=== PATIENT | female | born 1990 ===

== ENCOUNTER → 2017-12-05 | Day surgery (SDC) | payer OTHER ==
[~2017-12-05] VITALS: Ht 175.3 cm; Wt 107.5 kg
--- NOTE | 2017-12-05 14:50 | Operative Report ---
Operative/Inv Procedure Report Surgery Date: 12/05/17 Name of Procedure: Diagnostic Hysteroscopy, Dilation and Curettage Pre-Operative Diagnosis: retained endometrial tissue, infertility Post-Operative Diagnosis: same Estimated Blood Loss: scant Surgeon/Bleach Machine Operator: Riya Randhawa MD Anesthesia: general endotracheal tube Monitors: EKG (HR and rhythm), BP, O2 sat., resp. rate, patient temp., sedation level IV Fluids: LR Implants: none Urine Output: 50cc, clear, catheterized Drains: none Specimens: 1) ECC (endocervical curettage) 2) EMC (endometrial curettage) Tourniquet: none Complications: none Condition: good Operative Indication: retained endometrial tissue after episode of menorrhagia Primary Infertility Operative/Procedure Note Note: This is Dr. Riya Randhawa dictating an operative report for patient last name Lucia, first name Lulu, date of procedure 11/21/2017. The patient was brought to the operating room and placed on the OR table in the dorsal lithotomy position. General anesthesia was administered, the abdomen perineum and rectal area were sterilely prepped and draped and examination under anesthesia was done. The anterior lip of the cervix was grasped with a single-tooth tenaculum and endocervical curettage was done. The diagnostic hysteroscope with saline flow was then inserted into the cervix and then into the uterine cavity and the uterine cavity was visualized. The hysteroscope was removed and the contents of the uterine cavity was amply suctioned and curetted with a #8 suction curette until the preston felt clean and no further tissue was traveling up the tubing there was no active bleeding. Instruments were removed from the cervix, the patient was returned to the supine position, she was awakened from anesthesia, and transferred to the recovery room in good condition. Findings: No active bleeding. The uterus soundedto 8cm. Hysteroscopic visualization revealed multiple pink/white polypoid tissue folds occupying the entire cavity. No hemorrhagic or necrotic tissue was seen.
== END ==
LOC: STS 01:14
DX: N92.0 Excessive and frequent menstruation with regular cycle (principal); N85.8 Other specified noninflammatory disorders of uterus; I10 Essential (primary) hypertension; E11.9 Type 2 diabetes mellitus without complications; Z79.84 Long term (current) use of oral hypoglycemic drugs
CPT/HCPCS: 81025; J2250; J2405